=== PATIENT | female | born 1990 | race African-American/Black ===

== ENCOUNTER 2021-06-11 14:18 | Emergency (ER) | payer BC, OTHER ==
[~2021-06-11] VITALS: Ht 172.7 cm; Wt 228.2 kg
[2021-06-11 18:17] VITALS: BP 149/97
== END 2021-06-11 18:57 | disposition home or self-care (01) ==
LOC: ER 14:18
DX: I10 Essential (primary) hypertension (principal)
CPT/HCPCS: 81025